=== PATIENT | male | born 1945 | race Caucasian/White ===

== ENCOUNTER 2016-08-31 09:27 | Emergency (ER) | payer MEDICARE, BC ==
--- NOTE | ~2016-08-31 | CT71 ---
[facility] A Service of [facility] RADIOLOGY TEXT RESULTS PATIENT: RANDELL WILEY LOCATION: [facility] : 47 UNIT #: [id number] AGE: [address]: Sanchez Ulloa MD SEX: M ORDER DR: [id number] [address] [id number] [id number] MR#: [id number] Acc #: [id number] NAME: RANDELL WILEY : 1945 SEX: M STUDY DATE/TIME: 08/31/2016 10:24 UNIT: [facility] ROOM: STUDY DESCRIPTION: CT Head Wo Contrast Attending Physician: Sanchez Ulloa M.D. Ordering Physician: Sanchez Ulloa M.D. Primary Care Physician: Jimmie Foreman M.D. MEDICAL IMAGING REPORT This report is preliminary unless electronic signature is present EXAM Head CT no contrast, 08/31/2016 PROCEDURE Axial unenhanced head CT COMPARISON None HISTORY Dizziness and left eye pain/spasm since yesterday. TECHNIQUE This CT exam was performed with one or more of the following radiation dose reduction techniques: automatic exposure control, adjustment of mA and/or kV according to patient size, and iterative reconstruction. FINDINGS There is no intracranial hemorrhage. Brain parenchymal density is normal with the exception of some mild nonspecific white matter change. There is no hemorrhage or mass, hydrocephalus or extraaxial fluid collection. The extracranial soft tissues are unremarkable except for ocular lens replacement. There is also mild intracranial atherosclerotic carotid vascular calcification. IMPRESSION Minimal age appropriate nonspecific white matter change and minimal age appropriate intracranial atherosclerotic vascular calcification, otherwise normal negative unenhanced head CT. No acute abnormality. Dictated by... Anson Leung M.D. [facility] A Service [facility] RADIOLOGY TEXT RESULTS PATIENT: RANDELL WILEY LOCATION: [facility] : 47 UNIT #: [id number] AGE: [address]: Sanchez Ulloa MD SEX: M ORDER DR: THIS IS AN ELECTRONICALLY VERIFIED REPORT Anson Leung M.D. at 09/02/2016 1:53 PM [place] TD: 08/31/2016 15:18 JOB #: [id number] MEDICAL IMAGING REPORT Page 1 of 1 COPY
--- NOTE | ~2016-08-31 | EKG ---
PATIENT: RANDELL WILEY UNIT #: [id number] Ventricular Rate: 78 BPM Atrial Rate: 78 BPM P-R Interval: 168 ms QRS Duration: 84 ms Q-T Interval: 408 ms QTC Calculation(Bezet): 465 ms P Tionesta: 48 degrees Calculated R Tionesta: -26 degrees Calculated T Tionesta: 61 degrees Diagnosis Line: Normal sinus rhythm Diagnosis Line: Minimal voltage criteria for LVH, may be normal Diagnosis Line: variant Diagnosis Line: Borderline ECG Diagnosis Line: No previous ECGs available Diagnosis Line: Confirmed by SAUL CALDERÓN MD ([id number]) on Diagnosis Line: 08/31/2016 2:28:23 PM INTERPRETING MD: STEPHANE HOLLOWAY
[2016-08-31 09:21] LABS: BASOPHIL# 0.1 X10e3 (0-0.3); BASOPHIL% 0.8 % (0-2.5); EOSINOPHIL# 0.3 X10e3 (0-0.7); EOSINOPHIL% 3.5 % (0.0-7.0); HEMATOCRIT 51.8 % (38.0-50.0); HEMOGLOBIN 17.6 gm/dL (13.0-16.0); LYMPHOCYTE# 1.3 X10e3 (1.0-3.5); LYMPHOCYTE% 16.7 % (17.0-45.0); MEAN CELL VOLUME 81.7 FL (83-96); MEAN CORPUSCULAR HEMOGLOBIN 27.7 PG (28-34); MEAN CORPUSCULAR HGB CONC 33.9 g/dL (30-36); MEAN PLATELET VOLUME 9.2 FL (6.5-11.5); MONOCYTE# 0.5 X10e3 (0-1.0); MONOCYTE% 6.3 % (3.0-12.0); NEUTROPHIL# 5.7 X10e3 (1.5-7.1); NEUTROPHIL% 72.7 % (40-75); PLATELET COUNT 181 X10e3 (140-420); RED BLOOD COUNT 6.35 X10e (3.90-5.60); RED CELL DISTRIBUTION WIDTH 14.7 % (11.0-15.5); WHITE BLOOD COUNT 7.8 X10e3 (4.0-10.5)
[2016-08-31 09:23] LABS: DIFF IND NO
[2016-08-31 09:56] LABS: BLOOD UREA NITROGEN 16 mg/dL (9-23); CALCIUM SERUM 9.3 mg/dL (8.4-10.2); CARBON DIOXIDE 27 mmol/L (22-31); CHLORIDE 103 mmol/L (100-111); GLOM FILT RATE Estimated ABOVE60 mL/min (>60); GLUCOSE FASTING 118 mg/dL (70-110); POTASSIUM 3.9 mmol/L (3.5-5.1); SODIUM 139 mmol/L (135-145)
[2016-08-31 10:47] LABS: URINE SOURCE CLEAN CATCH
[2016-08-31 10:54] LABS: URINE APPEARANCE CLEAR; URINE BILIRUBIN NEG (NEG); URINE BLOOD TRACE (NEG); URINE COLOR YELLOW; URINE GLUCOSE NEG (NEG); URINE KETONE NEG (NEG); URINE LEUKOCYTE ESTERASE NEG (NEG); URINE NITRATE NEG (NEG); URINE PH 5.5 (5-8); URINE PROTEIN NEG (NEG); URINE SPECIFIC GRAVITY 1.021 (1.003-1.035); URINE UROBILINOGEN 0.2 MG/DL (NEG)
[2016-08-31 10:57] LABS: URBCS1 AUWI 0-2 /[HPF] (0-2); URINE BACTERIA AUWI NEG (NEGATIVE); URINE SQUAMOUS EPITHELIAL CELL OCC /[HPF]
[2016-08-31 10:58] LABS: CULTURE INDICATED? NO
== END 2016-08-31 11:30 | disposition home or self-care (01) ==
LOC: CED 09:27
PROVIDERS: Emergency Medicine
DX: G24.5 Blepharospasm (principal); I10 Essential (primary) hypertension; Z98.890 Other specified postprocedural states
CPT/HCPCS: 36415; 70450; 80048; 81003; 85025; 93005; 99284

== ENCOUNTER 2016-10-04 07:10 | Emergency (ER) | payer MEDICARE, BC | END 2016-10-04 08:12 | disposition home or self-care (01) | LOC: CED 07:10 | DX: M54.32 Sciatica, left side (principal); I10 Essential (primary) hypertension | CPT/HCPCS: 99282 ==